=== PATIENT | female | born 2000 | race Asian ===

== ENCOUNTER 2019-04-30 18:03 | Inpatient (IN) ==
[2019-04-30] MEDS ORDERED: DEXAMETHASONE **PF** INJ 10 MG/ML VIAL IV ONE (18:33)
[2019-04-30] MEDS ORDERED: ACETAMINOPHEN 1,000 MG/100 ML VIAL IV ONE (18:33)
[2019-04-30] MEDS ORDERED: cefTRIAXone SODIUM 2,000 MG in DEXTROSE 5% 50 ML IV STA (18:33)
[2019-04-30] MEDS ORDERED: SODIUM CHLORIDE 0.9% 1000ML 1,000 ML IV SCH (18:45)
[2019-04-30 18:49] LABS: Basophils # (auto) 0.01 K/uL (0-0.2); Basophils % (auto) 0.1 %; Eosinophils # (auto) 0.02 K/uL (0-0.5); Eosinophils % (auto) 0.3 %; Hemoglobin 12.7 g/dL (12.0-16.0); Immature Granulocytes # (auto) 0.02 K/uL (0.00-0.02); Immature Granulocytes % (auto) 0.3 %; Lymphocytes # (auto) 0.91 K/uL (1.2-3.4); Lymphocytes % (auto) 13.5 %; Mean Corpuscular Hgb Conc 33.4 g/dL (32-36); Mean Corpuscular Volume 88.2 fL (80-100); Monocytes % (auto) 7.4 %; Neutrophils % (auto) 78.4 %; Platelet Count 218 K/uL (130-400); RDW Standard Deviation 45.4 fL (36.4-46.3); Red Blood Count 4.31 M/uL (4.2-5.4); White Blood Count 6.76 K/uL (4.8-10.8)
--- NOTE | 2019-04-30 18:53 | XRay Report ---
XR chest 1V portable CLINICAL HISTORY: 18 years-old Female presenting with fever. TECHNIQUE: Portable upright AP view of the chest was obtained. COMPARISON: None. FINDINGS: Cardiomediastinal silhouette normal. Mildly low lung volumes. Date added density in the left perihila r region may be present versus overlapping soft tissue density. No other focal opacity. No large effu nicholas or pneumothorax. Upper abdomen normal. IMPRESSION: 1. Possible vague left perihilar infiltrate. Center PA and lateral views for better assessment as th is alternatively could represent overlapping soft tissue. Electronically signed by: Gilbert Haque M.D. 04/30/2019 6:52 PM
[2019-04-30 18:58] LABS: INR 1.2 (0.9-1.1); Prothrombin Time 12.2 Seconds (9.0-12.0)
[2019-04-30] MEDS ORDERED: VANCOMYCIN HCL 2,000 MG in SODIUM CHLORIDE 0.9% 500 ML IV ONE (18:58)
[2019-04-30] MEDS ORDERED: VANCOMYCIN CONSULT ACTIVE PRN (18:58)
[2019-04-30] MEDS ORDERED: ACYCLOVIR SOD 770 MG in DEXTROSE 5% 250 ML IV SCH (19:00)
[2019-04-30] MEDS ORDERED: ACYCLOVIR SOD 770 MG in DEXTROSE 5% 250 ML IV STA (19:01)
[2019-04-30 19:04] LABS: Alanine Aminotransferase 33 U/L (12-78); Albumin Level 3.8 gm/dl (3.4-5.0); Aspartate Aminotransferase 41 U/L (15-37); BUN Creatinine Ratio 11.5 (10-20); Blood Urea Nitrogen 13 mg/dl (7-18); Calcium 7.9 mg/dl (8.5-10.1); Carbon Dioxide 23 mmol/L (21-32); Chloride 107 mmol/L (98-107); Est GFR (African American) 81.6; Est GFR (Non-African American) 70.4; Glucose 146 mg/dl (70-99); Potassium 3.6 mmol/L (3.5-5.1); Sodium 137 mmol/L (136-145)
--- NOTE | 2019-04-30 19:04 | CT Scan Report ---
CT head/brain wo con CLINICAL HISTORY: 18 years-old Female presenting with fever, ams. TECHNIQUE: Multidetector CT imaging of the head was performed without the use of intravenous contrast . IV contrast: None. One or more dose lowering techniques were used consistent with the principles of ALARA (as low as reasonably achievable), including automatic exposure control, mA or kV adjustment t o individual patient size, and/or use of iterative reconstruction. COMPARISON: None. CT DOSE (mGy.cm): The estimated cumulative dose is 537.48 mGy.cm. 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 Ventricles and sulci normal in size. No hemorrhage. Brain parenchyma normal in appearance with preser sofie villalobos-white differentiation. No acute territorial infarct. No mass effect or midline shift. No ext ra-axial fluid collection. Paranasal sinuses and mastoid air cells clear. Calvarium intact. IMPRESSION: 1. No acute intracranial abnormality. Electronically signed by: Gilbert Haque M.D. 04/30/2019 7:02 PM
[2019-04-30 19:09] LABS: Alkaline Phosphatase 54 U/L (45-117); Bilirubin,Total 0.4 mg/dl (0.2-1); Globulin 3.9 gm/dl (2.5-4.0); Total Protein 7.7 gm/dl (6.4-8.2); Troponin I < 0.015 ng/ml (0-0.045)
[2019-04-30] MEDS ORDERED: XYLOCAINE 1%/SOD BICARB 20 ML VIAL ONE (19:41)
[2019-04-30 21:02] LABS: Total Protein CSF 21.5 mg/dl (15-45)
[2019-04-30 21:10] LABS: Appearance CSF Clear; CSF Count Tube # 3; CSF Xanthrochromic No xanthochromia; Color CSF Colorless; Red Blood Cell CSF (A) 2 /uL (0-); Red Blood Cell CSF (B) 2 /uL (0-); White Blood Cell CSF (A) 0 /uL (0-5); White Blood Cell CSF (B) 0 /uL (0-5)
[2019-04-30 21:17] LABS: Lyme Ab IgG w/WB Rflx Negative (Negative); Lyme Ab IgM w/WB Rflx Negative (Negative)
--- NOTE | 2019-04-30 22:03 | Emergency Department Note ---
Entered by Rocio Jackson acting as a scribe for History of Present Illness General Chief complaint: Fever Stated complaint: FEVER, TACHYCARDIA, HYPOTENSION, POSSIBLE SEPSIS Time Seen by Provider: 04/30/19 18:20 Source: friends History of Present Illness Onset (ago): day(s) (last night) Severity: severe (107.6) Pain Consistency: + other (persistent) Quality: + other (fever) Relieved By: not by medication (Ibuprofen) Associated symptoms: + cough, + nausea/vomiting (vomiting) and + other (left ear pain, drainage, short shallow breathing, tachycardia) The patient is a 18 year old female who presents to the ED with complaints of persistent fever starting last night. 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 She notes that she has known her for 2 years and she is normal talkative. She states that there is something wrong today. She states that she was counseling up until last night when she started to not feel well. She reports that when she laid down for bed last night her temperature was 103. She states that she was monitored all night, but still had the fever this morning. The patients friend states that they decided to take her to [facility] and right before leaving, she vomited. She reports that [facility] diagnosed her with an ear infection and started her on a Z Pack and nausea medication. She states that following the visit they went out for lunch and she was fine. She r eports that she started her medication when they got back to [place] and then she laid down for a nap. The patients friend reports that 3 hours ago, at 1530, the patient got up and vomited. She reports that when they retook her temperature it was till elevated. She reports that about 1.5 hours ago she then collapsed. She states that the nurse took her temperature and it was 107.6. She reports that t he patients pulse was 105, her bpm was 55, and she was breathing short, shallow breaths. She notes that this is the time that the patient stopped talking and seemed disoriented. She notes that they immediately gave her Ibuprofen and then bought her here. The patients friend notes that she has had possible exposure to ticks, but doesnt know if the patient has had any ticks thus far. She notes that the patient has had a shallow cough, complains of drainage, and pain in her left ear earlier. Home Medications Home Medications Medication Instructions Recorded Confirmed Type azithromycin [Zithromax Z-Christopher] 250 mg PO DAILY 04/30/19 04/30/19 History ondansetron 4 mg PO Q6H 04/30/19 04/30/19 History Allergies Allergy/AdvReac Type Severity Reaction Status Date / Time No Known Allergies Allergy Unverified 04/30/19 19:20 Past Med/Surg History Medical History No known health problems Family History Other No significant family history Social History Preferred Language: Vietnamese marital status: Single Current Living Situation: Alone current occupational status: employed and student Feels Safe at Home: Yes Smoking Status: Never smoker Review of Systems See HPI for pertinent positives & negatives. and A total of 10 systems reviewed and were otherwise negative Physical Exam Vital Signs Vital Signs - 24 hr 04/30/19 18:44 04/30/19 20:33 04/30/19 21:56 Temperature 40.0 C H 36.8 C Temperature Source Rectal Oral Sepsis Recent Fever Within 48 Hours Yes Sepsis New/Unexplained Change in Mental Status Yes Sepsis Action Taken by Nursing Physician Notified Pulse Rate 120 H Pulse Rate [Apical] 109 H 99 H Respiratory Rate 40 H 20 18 Respiratory Depth Normal Blood Pressure 106/66 Blood Pressure [Left Arm] 106/45 L 104/55 L Blood Pressure Mean 79 Blood Pressure Mean [Left Arm] 65 71 Pulse Oximetry 95 97 98 Oxygen Delivery Method Room Air Room Air CONSTITUTIONAL/VITAL SIGNS: Reviewed / noted above. GENERAL: Non-toxic in appearance. INTEGUMENTARY: Warm, dry, and [place]. HEAD: Normocephalic. EYES: without scleral icterus or trauma. ENT/OROPHARYNX: Mild left otitis media. Clear and moist. LYMPHADENOPATHY/NECK: Is supple without lymphadenopathy or meningismus. RESPIRATORY: Tachypneic. Lungs clear and equal. CARDIOVASCULAR: Tachycardic rate and regular rhythm. GI/ABDOMEN: Soft and nontender. No organomegaly or pulsatile mass. No rebound or guarding. Normal bowel sounds. EXTREMITIES: Warm and well perfused. BACK: No CVA tenderness. NEUROLOGICAL: Nonverbal. Does not follow commands. Appears to have carpal pedal spasm. PSYCHIATRIC: normal affect. MUSCULOSKELETAL: Normally developed with good muscle tone. Procedures Free Text Procedures Lumbar Puncture Indication: Rule out Meningitis. Verbal consent was obtained after the risks and benefits were explained, inc luding but not limited to headache, bleeding/clotting, scarring, infection, pain, and bone/joint/nerve damage. At this time, the risks of the procedure are less than the risks of NOT performing the procedure. A time out was taken and the correct patient and site identified. The patient was placed in the left lateral recumbent position and the back was prepped with betadine and draped in the standard fashion. The L3 intervertebral space was identified, anesthetized locally with 1% lidocaine without epinephrine, and the spinal needle was inserted through the skin with the bevel parallel to the dural fibers. The needle was carefully advanced into the lumbar cistern and 4 tubes (about 5-6 cc) of clear CSF was obtained. The stylet was replaced and the needle was removed. A bandaid was placed and the patient was placed in the supine position. The patient tolerated the procedure well and there were no complications. Course 1821: Past medical records reviewed. The patient was evaluated in room C1B. A complete history and physical exam was performed. 1943: I performed a lumbar puncture at this time. 2144: I reevaluated the patient and updated her on her test results. I discussed the treatment plan with her. She verbally agrees and understands. 2155: I discussed the patient's case with Dr. Carlito Pino. He will evaluate the patient for further management. Consultations Consultation #1: I discussed the patient's case with Dr. Carlito Pino. He will evaluate the patient for further management. Time: 21:56 Administered Medications Discontinued Medications Dexamethasone Sodium Phosphate (Decadron Pf) 10 mg IV NOW ONE Stop: 04/30/19 18:34 Last Admin: 04/30/19 20:12 Dose: 10 mg Documented by: [id number] Acetaminophen (Ofirmev) 1,000 mg in 100 mls @ 400 mls/hr IV NOW ONE Stop: 04/30/19 18:47 Last Infusion: 04/30/19 21:30 Dose: 0 mls/hr Documented by: [id number] Admin: 04/30/19 20:12 Dose: 400 mls/hr Documented by: [id number] Ceftriaxone Sodium 2,000 mg/ (Dextrose) 70 mls @ 100 mls/hr IV NOW STA Stop: 04/30/19 19:14 Last Infusion: 04/30/19 21:42 Dose: 0 mls/hr Documented by: [id number] Admin: 04/30/19 20:15 Dose: 100 mls/hr Documented by: [id number] Sodium Chloride (Nss 1000ml) 1,000 mls @ 999 mls/hr IV .Q1H1M KORINA Stop: 04/30/19 19:45 Last Infusion: 04/30/19 21:42 Dose: 0 mls/hr Documented by: [id number] Infusion: 04/30/19 21:41 Dose: 0 mls/hr Documented by: [id number] Admin: 04/30/19 19:15 Dose: 999 mls/hr Documented by: [id number] Vancomycin HCl 2,000 mg/ (Sodium Chloride) 540 mls @ 200 mls/hr IV NOW ONE; Protocol Stop: 04/30/19 21:39 Last Admin: 04/30/19 20:12 Dose: 200 mls/hr Documented by: [id number] Acyclovir Sodium 770 mg/ (Dextrose) 265.4 mls @ 250 mls/hr IV NOW STA; Protocol Stop: 04/30/19 20:04 Last Infusion: 04/30/19 21:42 Dose: 0 mls/hr Documented by: [id number] Admin: 04/30/19 20:13 Dose: 250 mls/hr Documented by: [id number] Lidocaine HCl (Buffered Lidocaine 1%) Confirm Administered Dose 20 ml .ROUTE .STK-MED ONE Stop: 04/30/19 19:42 Last Admin: 04/30/19 21:30 Dose: 20 ml Documented by: [id number] Medical Decision Making Differential Diagnosis Differential diagnosis: Etiologies such as viral syndrome, otitis, pharyngitis, pneumonia, influenza, meningitis, urinary tract infection, sepsis, bacteremia, as well as others were entertained. Medical Records Attestation: I reviewed the patient's medical records. Home Medications Current Medication List: was personally reviewed by me Laboratory Data Attestation: I reviewed the patient's lab results. Result diagrams: 04/30/19 18:30 04/30/19 18:30 Lab Results 07/11/19 07/11/19 07/11/19 Range/Units 18:30 18:30 18:30 WBC (4.8-10.8) K/uL RBC (4.2-5.4) M/uL Hgb (12.0-16.0) g/dL Hct (37-47) % MCV (80-100) fL MCH (25-34) pg MCHC (32-36) g/dL RDW Std Deviation (36.4-46.3) fL RDW Coeff of Clara (11.5-14.5) % Plt Count (130-400) K/uL MPV (7.4-10.4) fL Immature Gran % (Auto) % Neut % (Auto) % Lymph % (Auto) % [place] % (Auto) % Eos % (Auto) % Baso % (Auto) % Immature Gran # (Auto) (0.00-0.02) K/uL Neut # (Auto) (1.4-6.5) K/uL Lymph # (Auto) (1.2-3.4) K/uL [place] # (Auto) (0.11-0.59) K/uL Eos # (Auto) (0-0.5) K/uL Baso # (Auto) (0-0.2) K/uL ESR 51 H (0-21) mm/hr PT 12.2 H (9.0-12.0) Seconds INR 1.2 H (0.9-1.1) Sodium (136-145) mmol/L Potassium (3.5-5.1) mmol/L Chloride (98-107) mmol/L Carbon Dioxide (21-32) mmol/L Anion Gap (3-11) BUN (7-18) mg/dl Creatinine (0.6-1.2) mg/dl Est Cr Clr Drug Dosing Est GFR ( Amer) Est GFR (Non-Af Amer) BUN/Creatinine Ratio (10-20) Glucose (70-99) mg/dl POC Lactic Acid Adolfo (0.90-1.70) mmol/L Calcium (8.5-10.1) mg/dl Total Bilirubin (0.2-1) mg/dl AST (15-37) U/L ALT (12-78) U/L Alkaline Phosphatase (45-117) U/L Troponin I (0-0.045) ng/ml C-Reactive Protein (0-0.29) mg/dl Total Protein (6.4-8.2) gm/dl Albumin (3.4-5.0) gm/dl Globulin (2.5-4.0) gm/dl Albumin/Globulin Ratio (0.9-2) Lipase (73-393) U/L Procalcitonin 5.28 H (0-0.5) ng/ml CSF Appearance CSF Color Xanthrochromic CSF Specific [place] (1.006-1.008) CSF WBC (0-5) /uL CSF RBC (0-) /uL CSF Cell Count Tube # CSF Chemistry Tube # CSF Glucose (40-70) mg/dl CSF Total Protein (15-45) mg/dl Lyme Disease IgG Ab (Negative) Lyme Disease IgM Ab (Negative) 04/30/19 04/30/19 04/30/19 Range/Units 18:30 18:30 18:30 WBC 6.76 (4.8-10.8) K/uL RBC 4.31 (4.2-5.4) M/uL Hgb 12.7 (12.0-16.0) g/dL Hct 38.0 (37-47) % MCV 88.2 (80-100) fL MCH 29.5 (25-34) pg MCHC 33.4 (32-36) g/dL RDW Std Deviation 45.4 (36.4-46.3) fL RDW Coeff of Clara 14.0 (11.5-14.5) % Plt Count 218 (130-400) K/uL MPV 9.0 (7.4-10.4) fL Immature Gran % (Auto) 0.3 % Neut % (Auto) 78.4 % Lymph % (Auto) 13.5 % [place] % (Auto) 7.4 % Eos % (Auto) 0.3 % Baso % (Auto) 0.1 % Immature Gran # (Auto) 0.02 (0.00-0.02) K/uL Neut # (Auto) 5.30 (1.4-6.5) K/uL Lymph # (Auto) 0.91 L (1.2-3.4) K/uL [place] # (Auto) 0.50 (0.11-0.59) K/uL Eos # (Auto) 0.02 (0-0.5) K/uL Baso # (Auto) 0.01 (0-0.2) K/uL ESR (0-21) mm/hr PT (9.0-12.0) Seconds INR (0.9-1.1) Sodium 137 (136-145) mmol/L Potassium 3.6 (3.5-5.1) mmol/L Chloride 107 (98-107) mmol/L Carbon Dioxide 23 (21-32) mmol/L Anion Gap 7.0 (3-11) BUN 13 (7-18) mg/dl Creatinine 1.13 (0.6-1.2) mg/dl Est Cr Clr Drug Dosing Not Reportable Est GFR ( Amer) 81.6 Est GFR (Non-Af Amer) 70.4 BUN/Creatinine Ratio 11.5 (10-20) Glucose 146 H (70-99) mg/dl POC Lactic Acid Adolfo (0.90-1.70) mmol/L Calcium 7.9 L (8.5-10.1) mg/dl Total Bilirubin 0.4 (0.2-1) mg/dl AST 41 H (15-37) U/L ALT 33 (12-78) U/L Alkaline Phosphatase 54 (45-117) U/L Troponin I < 0.015 (0-0.045) ng/ml C-Reactive Protein 9.40 H (0-0.29) mg/dl Total Protein 7.7 (6.4-8.2) gm/dl Albumin 3.8 (3.4-5.0) gm/dl Globulin 3.9 (2.5-4.0) gm/dl Albumin/Globulin Ratio 1.0 (0.9-2) Lipase 78 (73-393) U/L Procalcitonin (0-0.5) ng/ml CSF Appearance CSF Color Xanthrochromic CSF Specific [place] (1.006-1.008) CSF WBC (0-5) /uL CSF RBC (0-) /uL CSF Cell Count Tube # CSF Chemistry Tube # CSF Glucose (40-70) mg/dl CSF Total Protein (15-45) mg/dl Lyme Disease IgG Ab Negative (Negative) Lyme Disease IgM Ab Negative (Negative) 04/30/19 04/30/19 04/30/19 Range/Units 19:49 20:20 20:20 WBC (4.8-10.8) K/uL RBC (4.2-5.4) M/uL Hgb (12.0-16.0) g/dL Hct (37-47) % MCV (80-100) fL MCH (25-34) pg MCHC (32-36) g/dL RDW Std Deviation (36.4-46.3) fL RDW Coeff of Clara (11.5-14.5) % Plt Count (130-400) K/uL MPV (7.4-10.4) fL Immature Gran % (Auto) % Neut % (Auto) % Lymph % (Auto) % [place] % (Auto) % Eos % (Auto) % Baso % (Auto) % Immature Gran # (Auto) (0.00-0.02) K/uL Neut # (Auto) (1.4-6.5) K/uL Lymph # (Auto) (1.2-3.4) K/uL [place] # (Auto) (0.11-0.59) K/uL Eos # (Auto) (0-0.5) K/uL Baso # (Auto) (0-0.2) K/uL ESR (0-21) mm/hr PT (9.0-12.0) Seconds INR (0.9-1.1) Sodium (136-145) mmol/L Potassium (3.5-5.1) mmol/L Chloride (98-107) mmol/L Carbon Dioxide (21-32) mmol/L Anion Gap (3-11) BUN (7-18) mg/dl Creatinine (0.6-1.2) mg/dl Est Cr Clr Drug Dosing Est GFR ( Amer) Est GFR (Non-Af Amer) BUN/Creatinine Ratio (10-20) Glucose (70-99) mg/dl POC Lactic Acid Adolfo 0.81 L (0.90-1.70) mmol/L Calcium (8.5-10.1) mg/dl Total Bilirubin (0.2-1) mg/dl AST (15-37) U/L ALT (12-78) U/L Alkaline Phosphatase (45-117) U/L Troponin I (0-0.045) ng/ml C-Reactive Protein (0-0.29) mg/dl Total Protein (6.4-8.2) gm/dl Albumin (3.4-5.0) gm/dl Globulin (2.5-4.0) gm/dl Albumin/Globulin Ratio (0.9-2) Lipase (73-393) U/L Procalcitonin (0-0.5) ng/ml CSF Appearance Clear CSF Color Colorless Xanthrochromic No xanthochromia CSF Specific [place] (1.006-1.008) CSF WBC 0 (0-5) /uL CSF RBC 2 (0-) /uL CSF Cell Count Tube # 3 CSF Chemistry Tube # 1 CSF Glucose 84 H (40-70) mg/dl CSF Total Protein 21.5 (15-45) mg/dl Lyme Disease IgG Ab (Negative) Lyme Disease IgM Ab (Negative) 04/30/19 Range/Units 20:20 WBC (4.8-10.8) K/uL RBC (4.2-5.4) M/uL Hgb (12.0-16.0) g/dL Hct (37-47) % MCV (80-100) fL MCH (25-34) pg MCHC (32-36) g/dL RDW Std Deviation (36.4-46.3) fL RDW Coeff of Clara (11.5-14.5) % Plt Count (130-400) K/uL MPV (7.4-10.4) fL Immature Gran % (Auto) % Neut % (Auto) % Lymph % (Auto) % [place] % (Auto) % Eos % (Auto) % Baso % (Auto) % Immature Gran # (Auto) (0.00-0.02) K/uL Neut # (Auto) (1.4-6.5) K/uL Lymph # (Auto) (1.2-3.4) K/uL [place] # (Auto) (0.11-0.59) K/uL Eos # (Auto) (0-0.5) K/uL Baso # (Auto) (0-0.2) K/uL ESR (0-21) mm/hr PT (9.0-12.0) Seconds INR (0.9-1.1) Sodium (136-145) mmol/L Potassium (3.5-5.1) mmol/L Chloride (98-107) mmol/L Carbon Dioxide (21-32) mmol/L Anion Gap (3-11) BUN (7-18) mg/dl Creatinine (0.6-1.2) mg/dl Est Cr Clr Drug Dosing Est GFR ( Amer) Est GFR (Non-Af Amer) BUN/Creatinine Ratio (10-20) Glucose (70-99) mg/dl POC Lactic Acid Adolfo (0.90-1.70) mmol/L Calcium (8.5-10.1) mg/dl Total Bilirubin (0.2-1) mg/dl AST (15-37) U/L ALT (12-78) U/L Alkaline Phosphatase (45-117) U/L Troponin I (0-0.045) ng/ml C-Reactive Protein (0-0.29) mg/dl Total Protein (6.4-8.2) gm/dl Albumin (3.4-5.0) gm/dl Globulin (2.5-4.0) gm/dl Albumin/Globulin Ratio (0.9-2) Lipase (73-393) U/L Procalcitonin (0-0.5) ng/ml CSF Appearance CSF Color Xanthrochromic CSF Specific [place] 1.005 L* (1.006-1.008) CSF WBC (0-5) /uL CSF RBC (0-) /uL CSF Cell Count Tube # CSF Chemistry Tube # CSF Glucose (40-70) mg/dl CSF Total Protein (15-45) mg/dl Lyme Disease IgG Ab (Negative) Lyme Disease IgM Ab (Negative) Imaging Data Radiologist's Impression: Radiology results as stated below per my review and the radiologist's interpretation: XR chest 1V portable CLINICAL HISTORY: 18 years-old Female presenting with fever. TECHNIQUE: Portable upright AP view of the chest was obtained. COMPARISON: None. FINDINGS: Cardiomediastinal silhouette normal. Mildly low lung volumes. Date added density in the left perihilar region may be present versus overlapping soft tissue density. No other focal opacity. No large effusion or pneumothorax. Upper abdomen normal. IMPRESSION: 1. Possible vague left perihilar infiltrate. Center PA and lateral views for better assessment as this alternatively could represent overlapping soft tissue. Electronically signed by: Gilbert Haque M.D. 04/30/2019 6:[address] head/brain wo con CLINICAL HISTORY: 18 years-old Female presenting with fever, ams. TECHNIQUE: Multidetector CT imaging of the head was performed without the use of intravenous contrast. IV contrast: None. One or more dose lowering techniques were used consistent with the principles of ALARA (as low as reasonably achievable), including automatic exposure control, mA or kV adjustment to individual patient size, and/or use of iterative reconstruction. COMPARISON: None. CT DOSE (mGy.cm): The estimated cumulative dose is 537.48 mGy.cm. 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 Ventricles and sulci normal in size. No hemorrhage. Brain parenchyma normal in appearance with preserved villalobos-white differentiation. No acute territorial infarct. No mass effect or midline shift. No extra-axial fluid collection. Paranasal sinuses and mastoid air cells clear. Calvarium intact. IMPRESSION: 1. No acute intracranial abnormality. Electronically signed by: Gilbert Haque M.D. 04/30/2019 7:02 PM ECG Data Attestation: I personally reviewed and interpreted this ECG as follows: Indication: altered mental status Rate (beats per minute): 120 Rhythm: sinus tachycardia Findings: no PAC, no PVC, no ST elevation and no ectopy Blood Pressure Blood Pressure Findings: Normal blood pressure Blood Pressure Disposition: did not require urgent referral MDM Narrative This is a 18-year-old female who presents to the ED with a chief complaint of a fever and change in mental status. 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 The patient had a temperature last night of 103. Today at around 10 AM she went to [place] where she was diagnosed with a left ear infection and a cough. The patient was started on Zithromax and put on Zofran for nausea. She vomited at 330 today and had a fever again. Around 4:50 PM, the patient collapsed at the nurses station at the camp and was found to have a fever of 107.6. She was given ibuprofen and sent here. She was nonverbal since that time. The patient initially on arrival here was nonverbal. She was tachypneic and having carpopedal spasm. After about 20 minutes, the patient's symptoms improved while here and she was speaking again. She did not have seizure activity. The patient seemed to be somewhat sluggish at first and a little confused but this also seemed to clear while she was here. The patient does have some exposures to ticks during her recent Stay. Nothing on her currently. A chest x-ray reveals a questionable perihilar infiltrate on the left. EKG showed a sinus tachycardia at a rate of 120. A CT scan of the brain did not show acute process. CBC was normal, CRP is elevated at 9.4, sed rate was elevated at 51 and procalcitonin level was elevated at 5.24. Lyme test was negative. Lumbar puncture was performed because of the encephalitis/meningitis picture. The lumb ar puncture did not show any evidence of abnormality. The patient was treated with IV Tylenol here. She was given IV Rocephin as well as IV Decadron. She was given a liter normal saline IV, IV vancomycin and IV acyclovir. On reassessment, the patient clinically appears much better. She is no longer febrile and her tachycardia improved. Because of her dramatic symptoms on presentation, the patient will be seen by the hospitalist for further inpatient evaluation and care. Impression & Plan Fever, Change in mental status, Pneumonia Discharge Plan Visit Data Chief Complaint: Fever Stated Complaint: FEVER, TACHYCARDIA, HYPOTENSION, POSSIBLE SEPSIS ED Provider: Dinesh Jordan Discharge Problem: Fever, Change in mental status, Pneumonia Patient Disposition: Being Evaluated by Hospitalist Forms Stand Alone Forms: [facility] Prescriptions Prescriptions: No Action azithromycin [Zithromax Z-Christopher] 250 mg Tablet 250 mg PO DAILY RF: 0 ondansetron 4 mg Tablet,Disintegrating 4 mg PO Q6H RF: 0 Referrals Referrals: PCP,NO [Primary Care Provider] - Discharge Problem: Fever Qualifiers: Fever type: unspecified Qualified Code(s): R50.9 - Fever, unspecified Change in mental status Qualifiers: Altered mental status type: unspecified Qualified Code(s): R41.82 - Altered mental status, unspecified Pneumonia Qualifiers: Pneumonia type: due to unspecified organism Laterality: unspecified laterality Lung location: unspecified part of lung Qualified Code(s): J18.9 - Pneumonia, unspecified organism The scribe's documentation has been prepared under my direction and personally reviewed by me in its entirety. I confirm that the note above accurately reflects all work, treatment, procedures, and medical decision making performed by me.
[2019-04-30] MEDS ORDERED: CALCIUM GLUCONATE 10% 1,000 MG in SODIUM CHLORIDE 0.9% 50 ML IV STA (22:18)
--- NOTE | 2019-04-30 22:20 | Emergency Department Note ---
ED Visit Note I have personally spent 35 minutes of critical care time in the direct management of this patient. This includes bedside care, interpretation of diagnostic studies, and testing, discussion with consultants, patient, and family members, and other required patient management activities. This 35 minutes is in excess of all separately billable procedures. . : Fever Qualifiers: Fever type: unspecified Qualified Code(s): R50.9 - Fever, unspecified Change in mental status Qualifiers: Altered mental status type: unspecified Qualified Code(s): R41.82 - Altered mental status, unspecified Pneumonia Qualifiers: Pneumonia type: due to unspecified organism Laterality: unspecified laterality Lung location: unspecified part of lung Qualified Code(s): J18.9 - Pneumonia, unspecified organism
--- NOTE | 2019-05-01 00:20 | History & Physical Report ---
Date of Service May 01, 2019 Assessment & Plan (1) Sepsis: ? Secondary to atypical pneumonia GMF Complete azithromycin course IVF DVT prophylaxis. Lovenox subcu Full code History of Present Illness Chief Complaint: Fever, not feeling well Primary Care Provider: Dr. Cortes Fuentes [place] History obtained from patient. No significant medical history. 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 Last night, patient started to not feel well, temperature noted to be 103 at the camp. Patient noted some dry cough, left ear pain symptoms without drainage, subsequent emesis. No chest pain, no S OB. Patient denies abdominal pain, diarrhea, dysuria symptoms. Denies excruciating headache, neck pain complaints. May have been exposed to a sick individual account as per patient. Patient seen at urgent care this morning . Prescribed Z-Christopher for possible ear infection. Patient able to take first dose of antibiotic. Patient brought to the emergency room with worsening symptoms, generalized weakness. Lumbar puncture done at the ER. 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 Medical History as above Surgical History : None Family History : Hypertension Personal/Social history : Non-smoker, no EtOH intake, high school [employer] Allergies Allergy/AdvReac Type Severity Reaction Status Date / Time No Known Allergies Allergy Unverified 04/30/19 19:20 Home Medications Home Medications Medication Instructions Recorded Confirmed Type azithromycin [Zithromax Z-Christopher] 250 mg PO DAILY 04/30/19 04/30/19 History ondansetron 4 mg PO Q6H 04/30/19 04/30/19 History Past Med/Surg History Medical History Asthma No known health problems Family History Other No significant family history Social History Preferred Language: Wolof Communication Ability: Effective 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 Beliefs That Will Affect Care: None marital status: Single Current Living Situation: Parent and Family current occupational status: employed and student Other Information That Helps Us Care for You: No Feels Safe at Home: Yes Safety Concerns: Feels Safe At This Time Smoking Status: Never smoker Do You Dip or Chew Tobacco: No Second Hand Expo sure: No Hx Alcohol Use: No Hx Substance Use: No Review of Systems Review of Systems: As per HPI, all 10 systems reviewed, all other ROS negative Physical Exam Physical Exam: GENERAL: Comfortable, wane but pleasant, no respiratory distress, obese SKIN: Normal color, warm HEENT: [place] palpebral conjunctivae, no ptosis; retracted TMs bilateral, retained cerumen, left ear; dry buccal mucosa NECK : Supple, short neck, no tenderness CHEST : CTA, no tenderness HEART : RRR, no obvious murmurs ABDOMEN: Some distention, nontender EXTREMITIES : No LE swelling/tenderness, no other conspicuous deformities noted, bruising right lower extremity (temp injury from a participant running into patient) NEUROLOGIC : Coherent, no facial asymmetry, no other gross focality Results & Data Vital Signs (Past 12 Hours) Vital Signs Temp Pulse Pulse Resp BP BP Pulse Ox 04/30/19 23:07 89 18 102/56 L 98 04/30/19 21:56 36.8 C 99 H 18 104/55 L 98 04/30/19 20:33 109 H 20 106/45 L 97 04/30/19 18:44 40.0 C H 120 H 40 H 106/66 95 Laboratory Results Laboratory Results WBC 6.76 K/uL (4.8-10.8) 04/30/19 18:30 RBC 4.31 M/uL (4.2-5.4) 04/30/19 18:30 Hgb 12.7 g/dL (12.0-16.0) 04/30/19 18:30 Hct 38.0 % (37-47) 04/30/19 18:30 MCV 88.2 fL (80-100) 04/30/19 18:30 MCH 29.5 pg (25-34) 04/30/19 18:30 MCHC 33.4 g/dL (32-36) 04/30/19 18:30 RDW Std Deviation 45.4 fL (36.4-46.3) 04/30/19 18:30 RDW Coeff of [place] 14.0 % (11.5-14.5) 04/30/19 18:30 Plt Count 218 K/uL (130-400) 04/30/19 18:30 MPV 9.0 fL (7.4-10.4) 04/30/19 18:30 Immature Gran % (Auto) 0.3 % 04/30/19 18:30 Neut % (Auto) 78.4 % 04/30/19 18:30 Lymph % (Auto) 13.5 % 04/30/19 18:30 [place] % (Auto) 7.4 % 04/30/19 18:30 Eos % (Auto) 0.3 % 04/30/19 18:30 Baso % (Auto) 0.1 % 04/30/19 18:30 Immature Gran # (Auto) 0.02 K/uL (0.00-0.02) 04/30/19 18:30 Neut # (Auto) 5.30 K/uL (1.4-6.5) 04/30/19 18:30 Lymph # (Auto) 0.91 K/uL (1.2-3.4) L 04/30/19 18:30 [place] # (Auto) 0.50 K/uL (0.11-0.59) 04/30/19 18:30 Eos # (Auto) 0.02 K/uL (0-0.5) 04/30/19 18:30 Baso # (Auto) 0.01 K/uL (0-0.2) 04/30/19 18:30 ESR 51 mm/hr (0-21) H 04/30/19 18:30 PT 12.2 Seconds (9.0-12.0) H 04/30/19 18:30 INR 1.2 (0.9-1.1) H 04/30/19 18:30 Sodium 137 mmol/L (136-145) 04/30/19 18:30 Potassium 3.6 mmol/L (3.5-5.1) 04/30/19 18:30 Chloride 107 mmol/L (98-107) 04/30/19 18:30 Carbon Dioxide 23 mmol/L (21-32) 04/30/19 18:30 Anion Gap 7.0 (3-11) 04/30/19 18:30 BUN 13 mg/dl (7-18) 04/30/19 18:30 Creatinine 1.13 mg/dl (0.6-1.2) 04/30/19 18:30 Est Cr Clr Drug Dosing Not Reportable 04/30/19 18:30 Est GFR ( Amer) 81.6 04/30/19 18:30 Est GFR (Non-Af Amer) 70.4 04/30/19 18:30 BUN/Creatinine Ratio 11.5 (10-20) 04/30/19 18:30 Glucose 146 mg/dl (70-99) H 04/30/19 18:30 POC Lactic Acid Adolfo 0.81 mmol/L (0.90-1.70) L 04/30/19 19:49 Calcium 7.9 mg/dl (8.5-10.1) L 04/30/19 18:30 Magnesium 2.0 mg/dl (1.8-2.4) 04/30/19 18:30 Total Bilirubin 0.4 mg/dl (0.2-1) 04/30/19 18:30 AST 41 U/L (15-37) H 04/30/19 18:30 ALT 33 U/L (12-78) 04/30/19 18:30 Alkaline Phosphatase 54 U/L (45-117) 04/30/19 18:30 Troponin I < 0.015 ng/ml (0-0.045) 04/30/19 18:30 C-Reactive Protein 9.40 mg/dl (0-0.29) H 04/30/19 18:30 Total Protein 7.7 gm/dl (6.4-8.2) 04/30/19 18:30 Albumin 3.8 gm/dl (3.4-5.0) 04/30/19 18:30 Globulin 3.9 gm/dl (2.5-4.0) 04/30/19 18:30 Albumin/Globulin Ratio 1.0 (0.9-2) 04/30/19 18:30 Lipase 78 U/L (73-393) 04/30/19 18:30 Procalcitonin 5.28 ng/ml (0-0.5) H 04/30/19 18:30 TSH 0.461 uIu/ml (0.300-4.500) 04/30/19 18:30 CSF Appearance Clear 04/30/19 20:20 CSF Color Colorless 04/30/19 20:20 Xanthrochromic No xanthochromia 04/30/19 20:20 CSF Specific [place] 1.005 (1.006-1.008) L* 04/30/19 20:20 CSF WBC 0 /uL (0-5) 07/11/19 20:20 CSF RBC 2 /uL (0-) 04/30/19 20:20 CSF Cell Count Tube # 3 04/30/19 20:20 CSF Chemistry Tube # 1 04/30/19 20:20 CSF Glucose 84 mg/dl (40-70) H 04/30/19 20:20 CSF Total Protein 21.5 mg/dl (15-45) 04/30/19 20:20 Lyme Disease IgG Ab Negative (Negative) 04/30/19 18:30 Lyme Disease IgM Ab Negative (Negative) 04/30/19 18:30 Diagnostic Findings Chest x-ray showed 1. Possible vague left perihilar infiltrate. Center PA and lateral views for better assessment as this alternatively could represent overlapping soft tissue. EKG as per my interpretation : Rate 120, sinus tachycardia, T wave inversion inferior leads Head: No acute intracranial abnormality.
[2019-05-01 00:34] LABS: Creatine Kinase 177 U/L (26-192)
[2019-05-01] MEDS ORDERED: LACTATED RINGER'S 1,000 ML IV ONE (02:20)
[2019-05-01] MEDS ORDERED: ACETAMINOPHEN 325 MG TAB PO PRN (02:20)
[2019-05-01] MEDS ORDERED: KETOROLAC TROMETHAMINE 15 MG/ML VIAL IV PRN (02:20)
[2019-05-01] MEDS ORDERED: IBUPROFEN 200 MG TAB PO PRN (02:20)
[2019-05-01] MEDS ORDERED: PROMETHAZINE HCL 12.5 MG in SODIUM CHLORIDE 0.9% 50 ML IV PRN (02:20)
[2019-05-01 03:31] LABS: Appearance Urine Clear (Clear); Bilirubin Urine Negative (Negative); Blood Urine Negative (Negative); Color Urine Yellow; Glucose Urine UA Negative (Negative); Ketones Urine 2+ (Negative); Leukocyte Esterase Urine Negative (Negative); Nitrite Urine Negative (Negative); Protein Urine Negative (Negative); Urobilinogen Urine Negative (Negative)
--- NOTE | 2019-05-01 08:04 | Hospitalist Progress Note ---
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 Was at urgent care center and prescribed Z-Christopher for possible ear infection, took 1 dose, continued to have worsening symptoms, generalized weakness which brought her to ED. FEVER, PROBABLE EARLY PNEUMONIA: Initially treated for possible ear infection at Urgent care, started on Azithromycin, took one dose came back with worsening symptoms, generalized weakness -In ED, fever 38 C. Mild initial tachycardia sec to fever not true sepsis. No leucocytosis. ED physician did LP- Negative for infection. No concerning s/s of meningitis Clinically improving- No more fever spikes, no leucocytosis -CXR-possible vague left perihilar infiltrate. -IV Fluids -Azithromycin to cover for atypical pneumonia --> Will change to Levofloxacin 750 mg daily ( Day 1) -Work up - Blood cx x 2, Sputum (dry cough so unable to collect), LP- follow up cultures, Anaplasma was ordered in ED- F/up. DVT PROPHYLAXIS -Low risk -Encourage ambulation DISPOSITION Medical mx in progress Likely discharge in AM if continues to feel better. Patient was talking to her dad on the phone but does not want me to talk to him. . Subjective Patient is feeling much better. 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 Cough is improved. Generalized weakness has improved. No more fever spikes. No chest pain, shortness of breath, nausea, vomiting. Not on oxygen. Physical Exam Physical Exam: GENERAL- AAOX3, No acute distress LUNGS- Air entry bilaterally equal. No rales, rhonchi, crackles, wheezes heard. HEART- Regular rate and rhythm. No murmurs ABDOMEN- Soft, non tender, non distended, Bowel sounds heard. EXTREMITIES- Good peripheral pulses, no edema SKIN- No rash Results & Data Vital Signs (Past 12 Hours) Vital Signs Temp Pulse Pulse Pulse Resp BP BP 05/01/19 07:15 36.7 C 69 16 102/67 05/01/19 02:29 36.4 C L 76 16 97/67 L 05/01/19 01:03 70 18 100/62 04/30/19 23:07 89 18 102/56 L 04/30/19 21:56 36.8 C 99 H 18 104/55 L 04/30/19 20:33 109 H 20 106/45 L Pulse Ox 05/01/19 07:15 99 05/01/19 02:29 98 05/01/19 01:03 98 04/30/19 23:07 98 04/30/19 21:56 98 04/30/19 20:33 97 (1) Pneumonia Laterality: unspecified laterality Lung location: unspecified part of lung Pneumonia type: due to unspecified organism Qualified Code(s): J18.9 - Pneumonia, unspecified organism
[2019-05-01 08:10] LABS: Hematocrit (blood only) 34.7 % (37-47); Hemoglobin 11.6 g/dL (12.0-16.0); Immature Granulocytes # (auto) 0.01 K/uL (0.00-0.02); Immature Granulocytes % (auto) 0.1 %; Lymphocytes # (auto) 1.02 K/uL (1.2-3.4); Lymphocytes % (auto) 14.9 %; Mean Corpuscular Hgb Conc 33.4 g/dL (32-36); Mean Corpuscular Volume 88.1 fL (80-100); Mean Platelet Volume 9.6 fL (7.4-10.4); Monocytes # (auto) 0.27 K/uL (0.11-0.59); Monocytes % (auto) 3.9 %; Neutrophils # (auto) 5.56 K/uL (1.4-6.5); Neutrophils % (auto) 81.1 %; Platelet Count 183 K/uL (130-400); RDW Coefficient of Variation 14.1 % (11.5-14.5); Red Blood Count 3.94 M/uL (4.2-5.4); White Blood Count 6.86 K/uL (4.8-10.8)
[2019-05-01] MEDS ORDERED: ENOXAPARIN INJ 30 MG/0.3 ML SYR SQ SCH (09:00)
[2019-05-01] MEDS ORDERED: AZITHROMYCIN 250 MG TAB PO SCH (09:00)
[2019-05-01 09:16] LABS: Estimated Average Glucose 126 mg/dl
[2019-05-01] MEDS ORDERED: NURSING DECISION MEDICATION ONE (11:07)
[2019-05-01] MEDS: levoFLOXacin 750 MG TAB PO SCH (11:09)
[2019-05-01] MEDS ORDERED: COUGH DROP (SUGAR FREE) LOZ 24 LOZ/1 BOX BUCCAL PRN (11:21)
--- NOTE | 2019-05-02 09:53 | Hospitalist Progress Note ---
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 Was at urgent care center and prescribed Z-Christopher for possible ear infection, took 1 dose, continued to have worsening symptoms, generalized weakness which brought her to ED. FEVER, PROBABLE EARLY PNEUMONIA: Initially treated for possible ear infection at Urgent care, started on Azithromycin, took one dose came back with worsening symptoms, generalized weakness -In ED, fever 38 C. Mild initial tachycardia sec to fever not true sepsis. No leucocytosis. ED physician did LP- Negative for infection. No concerning s/s of meningitis Clinically improved- No more fever spikes, no leucocytosis -CXR-possible vague left perihilar infiltrate. -IV Fluids discontinued -Azithromycin to cover for atypical pneumonia --> Changed to Levofloxacin 750 mg daily ( Day 2/) -Work up - Blood cx x 2- Neg, Sputum (dry cough so unable to collect), LP- follow up cultures, Anaplasma was ordered in ED- F/up. F/up CSF culture DVT PROPHYLAXIS -Low risk -Encourage ambulation DISPOSITION Eager to be discharged Patient does not want me to talk to parents. States that she already updated them. Would want to go back to the camp but agreed to rest for few days until fully recovered. . Subjective Patient is feeling well and eager to be discharged. 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 Cough is improved. Generalized weakness has resolved. No more fever spikes. No chest pain, shortness of breath, nausea, vomiting. Physical Exam Physical Exam: GENERAL- AAOX3, No acute distress LUNGS- Air entry bilaterally equal. No rales, rhonchi, crackles, wheezes heard. HEART- Regular rate and rhythm. No murmurs ABDOMEN- Soft, non tender, non distended, Bowel sounds heard. EXTREMITIES- Good peripheral pulses, no edema Results & Data Vital Signs (Past 12 Hours) Vital Signs Temp Pulse Resp BP BP Pulse Ox 05/02/19 06:54 36.5 C 62 15 106/69 100 05/02/19 03:53 36.4 C L 05/01/19 23:00 36.4 C L 79 16 104/66 99 (1) Pneumonia Laterality: unspecified laterality Lung location: unspecified part of lung Pneumonia type: due to unspecified organism Qualified Code(s): J18.9 - Pneumonia, unspecified organism
--- NOTE | 2019-05-02 09:56 | Discharge Summary ---
Date of Service May 02, 2019 Admission HPI Per Admitting Provider History obtained from patient. No significant medical history. 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 Last night, patient started to not feel well, temperature noted to be 103 at the camp. Patient noted some dry cough, left ear pain symptoms without drainage, subsequent emesis. No chest pain, no S OB. Patient denies abdominal pain, diarrhea, dysuria symptoms. Denies excruciating headache, neck pain complaints. May have been exposed to a sick individual account as per patient. Patient seen at urgent care this morning . Prescribed Z-Christopher for possible ear infection. Patient able to take first dose of antibiotic. Patient brought to the emergency room with worsening symptoms, generalized weakness. Lumbar puncture done at the ER. 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 No rales, rhonchi, crackles, wheezes heard. HEART- Regular rate and rhythm. No murmurs ABDOMEN- Soft, non tender, non distended, Bowel sounds heard. 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 Was at urgent care center and prescribed Z-Christopher for possible ear infection, took 1 dose, continued to have worsening symptoms, generalized weakness which brought her to ED. FEVER, PROBABLE EARLY PNEUMONIA: Initially treated for possible ear infection at Urgent care, started on Azithromycin, took one dose came back with worsening symptoms, generalized weakness -In ED, fever 38 C. Mild initial tachycardia sec to fever not true sepsis. No leucocytosis. ED physician did LP- Negative for infection. No concerning s/s of meningitis Clinically improved- No more fever spikes, no leucocytosis -CXR-possible vague left perihilar infiltrate. -IV Fluids discontinued -Azithromycin to cover for atypical pneumonia --> Changed to Levofloxacin 750 mg daily ( Day 2/7) -Work up - Blood cx x 2- Neg, Sputum (dry cough so unable to collect), LP- follow up cultures, Anaplasma was ordered in ED- F/up. F/up CSF culture DVT PROPHYLAXIS -Low risk -Encourage ambulation DISPOSITION Eager to be discharged Patient does not want me to talk to parents. States that she already updated them. Would want to go back to the camp but agreed to rest for few days until fully recovered. . Total Time Total Time Spent Total Time Spent (In Minutes): 35 minutes Discharge Plan Discharge Items Patient Disposition: Home - Self-Care Reason For Visit: SEPSIS Discharge Diagnosis: Probable early pneumonia Discharge Goals: Improve disease control Activity: Resume your previous activity Activity Comment: Would recommend 3 to 4 days of rest before resuming camp duties Non-emergency contact: Primary Care Provider Call non-emergency contact if: your symptoms worsen Follow-up/Referrals: PCP,NO [Primary Care Provider] - (Establish care with primary care physician. Would recommend 7-day follow-up visit) Diet: Regular Addtl Provider Instructions: You were admitted to the hospital for fever, cough, probable left-sided early pneumonia. You were treated with IV fluids, antibiotics. Medications New medicationlevofloxacin 750 mg p.o. daily for 6 more days to complete course of antibiotic Prescriptions: New levofloxacin 750 mg Tablet 750 mg PO DAILY@1100 6 Days Qty: 6 RF: 0 Discontinued azithromycin [Zithromax Z-Christopher] 250 mg Tablet 250 mg PO DAILY RF: 0 ondansetron 4 mg Tablet,Disintegrating 4 mg PO Q6H RF: 0 Stand-Alone Forms: My [employer], Work/School Release (Inpt) [place]/Other Patient Handouts: A1C, Prediabetes, Diabetes Healthy Meals, Diabetes Exercise Benefits Discharge Orders: Discharge Order (Routine); Ordered 05/02/19 Ordered By: April Boston Admission Data Admit Date/Time: 05/01/19 00:23 Attending Provider: Boston,April S Admit Provider: Chinedu Taylor Primary Care Provider: PCP,NO Other Providers: Chinedu Taylor Service: Medical
[2019-05-02] MEDS: levoFLOXacin 750 MG TAB PO SCH (10:54)
[2019-05-21 09:12] LABS: Anaplasma phagocytophila IgM <1:20 (<1:20)
== END 2019-05-02 11:55 | disposition home or self-care (01) | DRG 195 ==
LOC: ED 18:03 → 3N 05-01 00:23
DX: J18.9 Pneumonia, unspecified organism